=== PATIENT | female | born 1945 | race Caucasian/White ===

== ENCOUNTER 2018-05-29 10:13 | Emergency (ER) | payer BC, MEDICARE, OTHER ==
[~2018-05-29] VITALS: Ht 167.6 cm; Wt 69.0 kg
--- NOTE | 2018-05-29 10:59 | NUR ---
PT MOVED TO ROOM
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
--- NOTE | 2018-05-29 11:17 | NUR ---
DR RICE BS FOR EXAM.
--- NOTE | 2018-05-29 11:21 | NUR ---
IBUPROFEN: 400MG AT 0800.
[2018-05-29] MEDS ORDERED: MORPHINE SULFATE 4 MG/ML, 1ML IVPush PRN (11:30)
[2018-05-29] MEDS ORDERED: ONDANSETRON 2MG/ML, 2ML IVPush ONE (11:30)
[2018-05-29] MEDS ORDERED: VENL37.52 PO (11:43)
--- NOTE | 2018-05-29 12:10 | NUR ---
ASSISTED ONTO BED HOWARD. PT NOTIFIED OF MORPHINE ORDER; PT AGREES TO MEDICATION.
[2018-05-29] MEDS ORDERED: MORPHINE SULFATE 4 MG/ML, 1ML ONE (12:21)
[2018-05-29] MEDS ORDERED: ONDANSETRON 2MG/ML, 2ML ONE (12:21)
[2018-05-29 14:21] VITALS: BP 130/48
== END 2018-05-29 14:24 | disposition home or self-care (01) ==
LOC: ED 13:15
DX: S82.255A Nondisplaced comminuted fracture of shaft of left tibia, initial encounter for closed fracture (principal); W19.XXXA Unspecified fall, initial encounter; Y93.89 Activity, other specified; Y92.89 Other specified places as the place of occurrence of the external cause; Y99.8 Other external cause status
CPT/HCPCS: 29505; 73590; 73700; 96374; 96375; 99284; J2405; 29530

== ENCOUNTER 2020-06-20 10:35 | Outpatient (CLI) | payer MEDICARE ==
[~2020-06-20 10:35] MED LIST: VENL37.52 PO
[2020-06-20] MEDS ORDERED: VENL75TA PO (12:15)
== END 2020-06-20 23:59 | disposition home or self-care (01) ==
LOC: STAR 10:35
PROVIDERS: ATTEND Orthopaedic Surgery
DX: Z01.812 Encounter for preprocedural laboratory examination (principal); Z20.822 Contact with and (suspected) exposure to COVID-19; S63.511A Sprain of carpal joint of right wrist, initial encounter; X58.XXXA Exposure to other specified factors, initial encounter; Y93.89 Activity, other specified; Y92.89 Other specified places as the place of occurrence of the external cause; Y99.8 Other external cause status
CPT/HCPCS: 93005; U0003

== ENCOUNTER 2020-06-25 09:31 | Day surgery (SDC) | payer MEDICARE ==
[~2020-06-25] VITALS: Ht 167.6 cm; Wt 72.7 kg
[~2020-06-25 09:31] MED LIST changes: +VENL75TA PO
[2020-06-25] MEDS ORDERED: VITAMIN D PO (10:01)
[2020-06-25] MEDS ORDERED: MULT-658 PO (10:01)
[2020-06-25 10:02] VITALS: BP 103/68
[2020-06-25] MEDS ORDERED: CHLORHEXIDINE 15 ML UDC ONE (10:06)
[2020-06-25] MEDS ORDERED: CHLORHEXIDINE 15 ML UDC PO ONE (10:30)
[2020-06-25] MEDS ORDERED: LACTATED RINGERS 1,000 ML IV SCH (10:30)
[2020-06-25] MEDS ORDERED: FENTANYL PF 250 MCG/5ML ONE (12:14)
[2020-06-25] MEDS ORDERED: MIDAZOLAM 1 MG/ML, 2ML ONE (12:14)
[2020-06-25] MEDS ORDERED: EPINEPHRINE 1 MG/ML, 1ML ONE (12:39)
[2020-06-25] MEDS ORDERED: BUPIVACAINE/PF-EPI 0.25% 1:200K ONE ×2 (12:39→13:21)
[2020-06-25] MEDS ORDERED: DEXAMETHASONE 4 MG/ML, 1ML ONE (12:55)
[2020-06-25] MEDS ORDERED: PROPOFOL 10 MG/ML, 20ML ONE (12:55)
[2020-06-25] MEDS ORDERED: ONDANSETRON 2MG/ML, 2ML ONE (12:55)
[2020-06-25] MEDS ORDERED: CEFAZOLIN 1,000 MG ONE (12:55)
[2020-06-25] MEDS ORDERED: PHENYLEPHRINE 10 MG/ML ONE (12:55)
[2020-06-25] MEDS ORDERED: EPHEDRINE 50 MG/ML, 1ML ONE (12:55)
[2020-06-25] MEDS ORDERED: BUPIVACAINE/PF-EPI 0.25% 1:200K INFIL ONE (13:36)
[2020-06-25] MEDS ORDERED: KETOROLAC 30 MG/1 ML IV PRN (14:00)
[2020-06-25] MEDS ORDERED: DIAZEPAM 5 MG/ML, 2ML IVPush PRN (14:00)
[2020-06-25] MEDS ORDERED: METOCLOPRAMIDE 5 MG/ML, 2ML IVPush PRN (14:00)
[2020-06-25] MEDS ORDERED: DIPHENHYDRAMINE 50 MG/ML, 1ML IVPush PRN (14:00)
[2020-06-25] MEDS ORDERED: MEPERIDINE/PF 25MG/0.5ML IVPush PRN (14:00)
[2020-06-25] MEDS ORDERED: LABETALOL 5MG/ML, 20ML IV PRN (14:00)
[2020-06-25] MEDS ORDERED: EPHEDRINE 50 MG/ML, 1ML IVPush PRN (14:00)
[2020-06-25] MEDS ORDERED: HALOPERIDOL 5 MG/ML IV PRN (14:00)
[2020-06-25] MEDS ORDERED: METOPROLOL 1 MG/ML, 5ML IV PRN (14:00)
[2020-06-25] MEDS ORDERED: PROMETHAZINE 25 MG/ML, 1ML IVPush PRN (14:00)
[2020-06-25] MEDS ORDERED: OXYcodone 5 MG/5 ML ORAL.SOL UDC PO PRN (14:00)
[2020-06-25] MEDS ORDERED: hydrALAzine 20 MG/ML, 1ML IV PRN (14:00)
[2020-06-25] MEDS ORDERED: ONDANSETRON 2MG/ML, 2ML IVPush PRN (14:00)
[2020-06-25] MEDS ORDERED: ACETAMINOPHEN 325 MG TABLET PO PRN (14:00)
[2020-06-25] MEDS ORDERED: HYDROmorphone 1 MG/ML, 1ML INJ IVPush PRN (14:00)
[2020-06-25] MEDS ORDERED: FENTANYL PF 100 MCG/2ML ONE ×3 (15:50→16:57)
[2020-06-25] MEDS ORDERED: OXYcodone 5 MG/5 ML ORAL.SOL UDC ONE (16:22)
[2020-06-25] MEDS: FENTANYL PF 100 MCG/2ML IV PRN ×3 (16:26→17:03)
[2020-06-25] MEDS ORDERED: KETOROLAC 30 MG/1 ML ONE (16:42)
[2020-06-25] MEDS ORDERED: HYDROmorphone 1 MG/ML, 1ML INJ ONE (16:57)
== END 2020-06-25 19:30 | disposition home or self-care (01) ==
LOC: OUT 09:31
PROVIDERS: ATTEND Orthopaedic Surgery
DX: S83.511A Sprain of anterior cruciate ligament of right knee, initial encounter (principal); S83.411A Sprain of medial collateral ligament of right knee, initial encounter; S83.281A Other tear of lateral meniscus, current injury, right knee, initial encounter; S83.231A Complex tear of medial meniscus, current injury, right knee, initial encounter; G89.18 Other acute postprocedural pain; G47.33 Obstructive sleep apnea (adult) (pediatric); F32.9 Major depressive disorder, single episode, unspecified; Z79.1 Long term (current) use of non-steroidal anti-inflammatories (NSAID); Z79.891 Long term (current) use of opiate analgesic; Z79.899 Other long term (current) drug therapy; Z85.3 Personal history of malignant neoplasm of breast; Z87.891 Personal history of nicotine dependence; Z88.2 Allergy status to sulfonamides; Z98.890 Other specified postprocedural states; X36.1XXA Avalanche, landslide, or mudslide, initial encounter; Y93.23 Activity, snow (alpine) (downhill) skiing, snowboarding, sledding, tobogganing and snow tubing; Y92.89 Other specified places as the place of occurrence of the external cause; Y99.8 Other external cause status
CPT/HCPCS: 27405; 29881; 29882; 29888; 64447; C1713; C1762; C1763; C1776; J0171; J0690; J1100; J1170; J1885; J2250; J2370; J2405; J2704; J3010; J7120